=== PATIENT | female | born 1980 | race Caucasian/White ===

== ENCOUNTER 2020-06-05 21:10 | Emergency (ER) | payer BC, SELFPAY ==
[2020-06-05 21:09] VITALS: BP 166/95; PULSE 77; RESP 17; TEMP 36.6; O2SAT 100
--- NOTE | 2020-06-05 21:16 | ED.ALLEREA ---
HPI - Allergic Reaction General Chief complaint: Allergic Reaction Stated complaint: allergic reaction Source: patient and EMS Mode of arrival: EMS Limitations: no limitations History of Present Illness HPI narrative: Patient is a 39-year-old female who presents for evaluation of allergic reaction. Patient was out this evening drinking with friends, when she suddenly felt hives, over her body, started to experience some itching in her throat, tongue swelling and swelling of her eyelids. Patient states that she has a history of 10 previous severe allergic reactions requiring evaluation in emergency department. She does not have an EpiPen prescribed to her and is never seen an home based assistant. EMS was called, patient was immediately administered intramuscular epinephrine, IV Solu-Medrol and IV Benadryl. Patient had much improvement in her symptoms through transfer and remained hemodynamically stable. At the time of assessment, patient is really only reporting feeling anxious, eyelid edema, tongue edema is much improved. Patient has no history of confirmed allergies to specific foods, medications or environmental exposures. Patient has no confirmed allergic reactions to any foods, medications, environmental exposures. Related Data Allergies Allergy/AdvReac Type Severity Reaction Status Date / Time No Known Allergies Allergy Verified 06/05/20 21:13 Review of Systems Review of Systems: Narrative: CONSTITUTIONAL: Denies fever CARDIOVASCULAR: Denies chest pain RESPIRATORY: Denies cough or dyspnea. GASTROINTESTINAL: Denies abdominal pain SKIN: Denies rash MUSCULOSKELETAL: Denies back pain NEUROLOGIC: Denies headache [facility] Past Medical History Medical History (Updated 06/05/20 @ 22:24 by Betzaida Yung MD) Asthma Ectopic Surgical History Surgical History (Updated 06/05/20 @ 21:20 by Betzaida Yung MD) H/O oophorectomy Family History Family History (Updated 06/18/14 @ 07:13 by DOCTOR UNKNOWN) Mother Hypertension Grandparent Cerebrovascular accident Carcinoma of colon Family history of lung cancer Social History Social History Smoking status: Never smoker Second hand tobacco smoke exposure: No Alcohol intake: current Exam Narrative: Exam Narrative: GENERAL: Awake, alert, conversant HEAD: Normocephalic, atraumatic. EYES: PERRLA and EOMI. bilateral eyelid edema. ENT: Nares clear, no rhinorrhea or epistaxis. Mucous membranes moist. No tongue edema. No trismus. Uvula is midline. NECK: Supple. CHEST: No respiratory distress, breathing even and non labored, patient is slightly hyperventilating HEART: Regular rate, sinus rhythm ABDOMEN:Non distended, non tender EXTREMITIES: Normal range of motion. No edema. SKIN: Warm, dry, no rash. No urticaria. NEURO:No focal deficits. Alert and oriented x3 Course Vital Signs Vital signs: Vital Signs Temperature 36.6 C 06/05/20 21:09 Pulse Rate 77 06/05/20 21:09 Respiratory Rate 17 06/05/20 21:09 Blood Pressure 166/95 H 06/05/20 21:09 Pulse Oximetry 100 06/05/20 21:09 Temperature 36.6 C 06/05/20 21:09 Pulse Rate 79 06/06/20 00:21 Respiratory Rate 16 06/06/20 00:21 Blood Pressure 123/62 06/06/20 00:21 Pulse Oximetry 98 06/06/20 00:21 MDM - Allergic Reaction MDM Narrative Medical decision making narrative: Patient presented for evaluation of allergic reaction. Patient is having some mild shortness of breath as well as rash which is concerning for 2 system involvement which would be consistent with anaphylaxis. No hypotension or hypoxemia. Patient had been given IV epinephrine, steroids, Benadryl by EMS and did have much improvement in her symptoms, but did require repeat intramuscular epinephrine injection due to recurrent lid edema. Patient was given a DuoNeb treatment. Additional Benadryl as well. Laboratory results notable for hypokalemia
--- NOTE | 2020-06-05 21:19 | PC.NURSE ---
pt presents to ER via EMS with c/o anaphlyatic reaction. unknown what pt is allergic to. pt states she was on her way to dinner when she noticed facial swelling, hives, tongue swelling, and difficulty breathing. pt was given solu-medrol, benadryl, and epi by EMS. upon arrival, EMS reports pt's facial swelling has decreased and hives have diminished. pt SpO2 100% on RA.
[2020-06-05 21:25] VITALS: PULSE 96; RESP 16
[2020-06-05] MEDS: diphenhydrAMINE HCl INJ 50 MG/ML VIAL 25 MG IV PUSH (21:25)
[2020-06-05] MEDS: SODIUM CHLORIDE 0.9% IV 1,000 ML 999 ML IV CONT (21:25)
[2020-06-05] MEDS: ALBUTEROL SULFATE NEB 2.5 MG/0.5 ML INH 5 MG INHALATION (21:29)
[2020-06-05] MEDS: IPRATROPIUM BR 0.02% INH SOLN 0.5 MG/2.5 ML VIAL INHALATION (21:29)
[2020-06-05 21:31] LABS: Basophils Absolute Auto 0.1 K/mm3 (0.0-0.1); Basophils Percent Auto 0.7 % (0.2-1.2); Eosinophils Absolute Auto 0.4 K/mm3 (0-0.3); Eosinophils Percent Auto 2.6 % (0-4.4); Hemoglobin 12.6 g/dL (12.0-15.0); Immature Granulocyte Absolute 0.05 K/mm3 (0.00-0.031); Immature Granulocyte Percent A 0.3 % (0-0.5); Lymphocytes Absolute Auto 6.75 K/mm3 (0.9-3.2); Lymphocytes Percent Auto 42.1 % (18.3-44.2); Mean Corpuscular HGB Conc 33.2 g/dl (32-36); Mean Corpuscular Hemoglobin 28.1 pg (26-34); Mean Corpuscular Volume 84.8 fl (80-100); Mean Platelet Volume 9.1 fl (7.4-10.4); Monocytes Absolute Auto 1.1 K/mm3 (0.1-0.6); Monocytes Percent Auto 7.1 % (2.6-8.5); Neutrophils Absolute Auto 7.6 K/mm3 (1.3-6.7); Neutrophils Percent Auto 47.2 % (45.5-73.1); Platelet Count Result 310 k/mm3 (150-375); Red Blood Count 4.48 M/mm3 (4.2-5.4); Red Cell Distribution Width 13.2 % (11.5-14.5); White Blood Count 16.1 K/mm3 (4.5-10.0)
[2020-06-05 21:33] VITALS: PULSE 87; RESP 16
--- NOTE | 2020-06-05 21:38 | PC.NURSE ---
pt ambulatory to restroom at this time without difficulty. pt's remains at bedside.
[2020-06-05] MEDS: EPINEPHrine HCL INJ 1 MG/ML AMPUL 0.3 MG IM (21:42)
[2020-06-05 21:47] LABS: Atypical Lymphocytes Present; Platelet Estimate Adequate (Adequate)
[2020-06-05 21:58] VITALS: BP 152/69; PULSE 74; RESP 19; O2SAT 100
[2020-06-05 22:16] LABS: Anion Gap 17 mmol/L (8-16); Blood Urea Nitrogen 10 mg/dL (7-17); Carbon Dioxide 18 mmol/L (22-30); Chloride 99 mmol/L (98-107); Estimated CRCL calculation 93 ml/min; Estimated Glomerular Filt Rate > 60; Glucose 123 mg/dL (65-105); Potassium 2.3 mmol/L (3.4-5.0); Sodium 134 mmol/L (137-145)
[2020-06-05] MEDS: POTASSIUM CHLORIDE 20 MEQ PACKET (FOR LIQUID) 40 MEQ PO (22:47)
[2020-06-05] MEDS: SODIUM CHLORIDE 0.9% IV 1,000 ML 100 ML (23:44)
[2020-06-06 00:21] VITALS: BP 123/62; PULSE 79; RESP 16; O2SAT 98
[2020-06-06 00:46] LABS: Anion Gap 14 mmol/L (8-16); Blood Urea Nitrogen 8 mg/dL (7-17); Carbon Dioxide 18 mmol/L (22-30); Chloride 105 mmol/L (98-107); Estimated CRCL calculation 93 ml/min; Estimated Glomerular Filt Rate > 60; Glucose 135 mg/dL (65-105); Potassium 3.7 mmol/L (3.4-5.0); Sodium 137 mmol/L (137-145)
[2020-06-06 01:15] VITALS: BP 131/75; PULSE 75; RESP 16; O2SAT 99
== END 2020-06-06 01:16 | disposition home or self-care (01) ==
PROVIDERS: Emergency Provider Emergency Medicine
DX: T78.2XXA Anaphylactic shock, unspecified, initial encounter (principal); E87.6 Hypokalemia; J45.909 Unspecified asthma, uncomplicated
CPT/HCPCS: 36415; 80048; 85025; 94640; 96361; 96365; 96366; 96372; 96375; 99284; A9270; J0171; J1200; J3480; J7030

== ENCOUNTER 2021-03-04 14:46 | Outpatient (CLI) | payer BC, SELFPAY ==
--- NOTE | ~2021-03-04 | MM_ITS ---
EXAMINATION: MM screening [facility] BI w mila HISTORY: Screening mammogram TECHNIQUE: Craniocaudal and mediolateral oblique 3-D tomosynthesis images were obtained and synthetic 2-D images were generated. CAD analysis was submitted and interpreted. COMPARISON: 07/31/2013, 12/21/2011 BREAST PARENCHYMAL COMPOSITION: The breasts are extremely dense, which lowers the sensitivity of mamm ography. FINDINGS: There is no evidence of suspicious mass, calcification, or architectural distortion to sugg est malignancy in either breast. There has been no suspicious interval change. IMPRESSION: 1. No mammographic evidence of malignancy. 2. Recommend routine screening mammography in one year. BI-RADS Category 1: Negative Reviewed, dictated and finalized at location A.
== END 2021-03-04 14:47 | disposition home or self-care (01) ==
LOC: ANHIMG 14:48
PROVIDERS: PCP Family Medicine; Visit Provider Obstetrics & Gynecology
DX: Z12.31 Encounter for screening mammogram for malignant neoplasm of breast (principal)
CPT/HCPCS: 77063; 77067

== ENCOUNTER 2022-09-21 16:07 | Outpatient (CLI) | payer BC, SELFPAY ==
--- NOTE | ~2022-09-21 | MM_ITS ---
EXAMINATION: MM screening [facility] BI w mila HISTORY: Screening mammogram TECHNIQUE: Craniocaudal and mediolateral oblique 3-D tomosynthesis images were obtained and synthetic 2-D images were generated. CAD analysis was submitted and interpreted. COMPARISON: 03/04/2021, 07/31/2013, 12/21/2011 BREAST PARENCHYMAL COMPOSITION: The breasts are extremely dense, which lowers the sensitivity of mamm ography. FINDINGS: No suspicious mass, calcification, or architectural distortion are identified in either tyler ast to suggest malignancy. There has been no suspicious interval change. IMPRESSION: 1. No mammographic evidence of malignancy. 2. Recommend routine screening mammography in one year. BI-RADS Category 1: Negative Reviewed, dictated and finalized at location A. 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
== END 2022-09-21 16:08 | disposition home or self-care (01) ==
LOC: ANHIMG 16:08
PROVIDERS: PCP Family Medicine; Visit Provider Obstetrics & Gynecology
DX: Z12.31 Encounter for screening mammogram for malignant neoplasm of breast (principal)
CPT/HCPCS: 77063; 77067

== ENCOUNTER 2023-01-07 17:10 | Emergency (ER) | payer BC, SELFPAY ==
[2023-01-07 17:18] VITALS: BP 136/83; PULSE 73; RESP 16; TEMP 36.6; O2SAT 100
--- NOTE | 2023-01-07 17:26 | ED.EYEPROB ---
HPI - Eye Problem General Chief complaint: Eye Problems Stated complaint: rt eye swelling/pain Time Seen by Provider: 01/07/23 17:26 Source: patient Mode of arrival: ambulatory Limitations: no limitations History of Present Illness HPI Narrative: 42 y/o female presented for c/o right eye irritation since yesterday. States it started with feeling a little pain to the outer corner of the eye, then resulted in a migraine which has resolved. Today she has had lower lid redness and swelling with tenderness to the lower lid and clear tearing. Denies stye formation. Pt used warm compresses and saline drops. Also used left over Polytrim drops today, which caused burning. Denies photophobia, vision changes, headache, n/v/d/f/c today. chief complaint: eye pain Related Data Home Medications Medication Instructions Recorded Confirmed cetirizine 10 mg capsule (Zyrtec) 10 mg PO DAILY 08/12/20 01/07/23 Allergies Allergy/AdvReac Type Severity Reaction Status Date / Time No Known Allergies Allergy Verified 01/07/23 17:36 Review of Systems Review of Systems: CONSTITUTIONAL: Denies body aches, fever, chills EYES:Endorses swelling, redness and pain to right eye ENT: Denies rhinorrhea, congestion, sore throat, or otalgia. CARDIOVASCULAR: Denies chest pain, palpitations RESPIRATORY: Denies cough or dyspnea. GASTROINTESTINAL: Denies abdominal pain, nausea, vomiting, or diarrhea. SKIN: Denies rash, itching, or wounds. MUSCULOSKELETAL: Denies back pain, joint pain, or myalgia. NEUROLOGIC: Denies headache, numbness, tingling, or weakness. All systems reviewed & are unremarkable except as noted in HPI and below PMFSH Past Medical History Medical History Asthma Ectopic Ectopic , tubal Surgical History Surgical History History of bilateral salpingectomy History of section History of tonsillectomy Family History Family History Mother Hypertension Grandparent Cerebrovascular accident Carcinoma of colon Family history of lung cancer Social History Social History (Reviewed 01/07/23 @ 17:34 by ANDREA Pittman Smoking status: Never smoker Second hand tobacco smoke exposure: No Alcohol intake: current Comments At time of signature, I have reviewed and agree with nursing past medical, surgical, social and family history unless otherwise noted. Please see nursing chart for further information. There is no relevant family history pertinent to the presenting complaint Exam Narrative: GENERAL: Well-appearing HEAD: Normocephalic, atraumatic. EYES: right conjunctival injection, lower eye lid mild swelling with redness; no apparent cellulitis, no purulent drainage, no stye noted, no FB; PERRLA, EOMI. ENT: Mucous membranes pink and moist. No rhinorrhea. CHEST: Clear to auscultation. HEART: Regular rate and rhythm. ABDOMEN: Soft, nontender, nondistended SKIN: Warm, dry, no rash. Normal skin turgor. NEURO: No focal deficits. Alert and oriented x3 PSYCH: Normal affect. Course Course Emergency Course: Patient is aware of diagnosis, understands and agrees to treatment plan. Anticipatory guidance given. Patient agrees to follow-up as directed and is aware of reasons to seek care at the emergency department. Portions of this record may have been created with voice recognition software Level of Care: Express Care Visit Vital Signs Vital signs: Vital Signs Temperature 98 F 01/07/23 17:18 Pulse Rate 73 01/07/23 17:18 Respiratory Rate 16 01/07/23 17:18 Blood Pressure 136/83 01/07/23 17:18 Pulse Oximetry 100 01/07/23 17:18 Temperature 98 F 01/07/23 17:18 Pulse Rate 73 01/07/23 17:18 Respiratory Rate 16 01/07/23 17:18 Blood Pressure 136/83 01/07/23 17:18 Pulse O
== END 2023-01-07 17:57 | disposition home or self-care (01) ==
PROVIDERS: Emergency Provider Nurse Practitioner Family; PCP Family Medicine
DX: H10.9 Unspecified conjunctivitis (principal)
CPT/HCPCS: 99213; A9270; G0463

== ENCOUNTER 2023-12-10 08:29 | Outpatient (CLI) | payer BC, SELFPAY ==
--- NOTE | ~2023-12-10 | MMUS_ITS ---
EXAMINATION: MM diagnostic [facility] BI w mila, US breast BI complete HISTORY: Palpable breast lump. TECHNIQUE: Additional 3-D tomosynthesis images of the breasts were performed and synthetic 2-D images were generated. CAD analysis was submitted and interpreted. High resolution bilateral complete breas t ultrasound was performed. COMPARISON: Comparison to multiple prior studies sequentially, with oldest reviewed study dated 03/04. BREAST PARENCHYMAL COMPOSITION: Dense: The breasts are heterogeneously dense, which may obscure small masses FINDINGS: MAMMOGRAPHIC FINDINGS: There are no suspicious masses, calcifications or architectural distortion in either breast to sugges t malignancy. ULTRASOUND: Complete bilateral US of all 4 quadrants of the breasts and retroareolar region was reviewed. There a re small cysts of the right breast at 4:00, 4 cm from the nipple measuring 3 mm and 7:00, 6 cm from t he nipple measuring 4 mm. No suspicious masses are identified in either breast to suggest malignancy. IMPRESSION: 1. No evidence for malignancy in either breast. 2. Routine yearly screening mammogram and regular clinical breast examination are recommended. BI-RADS Category 2: Benign finding(s). Reviewed, dictated and finalized at location A. 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 No evidence for malignancy in either breast. 2. Routine yearly screening mammogram and regular clinical breast examination a re recommended. BI-RADS Category 2: Benign finding(s).
== END 2023-12-10 08:30 | disposition home or self-care (01) ==
LOC: CHSIMG 08:31
PROVIDERS: PCP Family Medicine; Visit Provider Registered Nurse
DX: N63.13 Unspecified lump in the right breast, lower outer quadrant (principal)
CPT/HCPCS: 76641; 77062; 77066; G0279

== ENCOUNTER 2024-12-02 19:35 | Emergency (ER) | payer BC, SELFPAY ==
--- NOTE | 2024-12-02 19:46 | ED.ABDPAIN ---
HPI - Abdominal Pain General Chief Complaint: Abdominal Pain Stated Complaint: Abdominal Pain Source: patient and RN notes reviewed Mode of arrival: ambulatory Limitations: no limitations History of Present Illness HPI narrative: Patient is a 44-year-old female who presents to [facility] with complaints of lower abdominal pain. She states that the abdominal pain started midday. The pain has now migrated to the right lower quadrant. It is constant and sharp. She states that it will intermittently radiate up into her right shoulder. She denies any urinary symptoms. Denies nausea but reports decreased appetite. She unsure of known fevers but reports chills. Denies any prior GI surgeries. Denies history of kidney stones. Related Data Home Medications ?Medication ?Instructions ?Recorded ?Confirmed ?Last Taken ?Type cetirizine 10 mg capsule (Zyrtec) 10 mg PO DAILY 08/12/20 08/20/24 Unknown History Allergies Allergy/AdvReac Type Severity Reaction Status Date / Time No Known Allergies Allergy Verified 08/19/24 11:38 Review of Systems Review of Systems: CONSTITUTIONAL: Denies fever, but reports chills. EYES: Denies visual changes, redness, or discharge. ENT: Denies otalgia and sore throat CARDIOVASCULAR: Denies chest pain, palpitations, or edema. RESPIRATORY: Denies cough or dyspnea. GASTROINTESTINAL: Reports abdominal pain but denies nausea, vomiting, or diarrhea. GENITOURINARY: Denies dysuria or hematuria. SKIN: Denies rash or itching. MUSCULOSKELETAL: Denies back pain, joint pain, or myalgia. NEUROLOGIC: Denies headache, numbness, or weakness. Pertinent positives per HPI. [facility] Past Medical History Medical History Ectopic , tubal Ectopic Asthma Surgical History Surgical History History of section History of bilateral salpingectomy History of tonsillectomy Family History Family History Mother Hypertension Grandparent Cerebrovascular accident Carcinoma of colon Family history of lung cancer Social History Social History Smoking status: Never smoker Second hand tobacco smoke exposure: No Alcohol intake: current Substance use: never Substance use type: does not use Lack of Transportation: No Lack of Food: Never True Current Housing: I Have Housing Concerned About Future Housing: No Difficulty Paying Gas/Electric Bills: No Difficulty Paying for Meds: No Currently Unemployed: No Education: Master's Degree or Higher Difficulty w/ Childcare or Family Care: No Comments At the time of my signature, I reviewed and agree with the nursing past medical, surgical, social, and family history. There is no relevant family history pertinent to the patient complaint. Exam Narrative: GENERAL: This is a well-nourished, well-developed patient, in no apparent distress. HEAD: normocephalic, atraumatic. EYES: Sclera clear/white. Vision is grossly intact. EARS: External ears normal. Hearing grossly intact. NOSE: External nose normal with no obvious nasal discharge, nares without redness, no rhinorrhea. THROAT: Mucous membranes moist, posterior pharynx clear. NECK: Neck supple, non-tender without lymphadenopathy, masses or thyromegaly. CARDIOVASCULAR: Regular rate and rhythm without murmurs, gallops, or rubs. RESPIRATORY: Clear to auscultation. Breath sounds equal bilaterally. No wheezes, rales, or rhonchi. GASTROINTESTINAL: Abdomen tender in the right lower quadrant. Bowel sounds are active. SKIN: warm, intact with no suspicious lesions or rash, good texture and turgor. NEURO: awake, alert, and oriented to person, place and time. There were no obvious focal neurologic abnormalities. Course Course Level of Care: Express Care Visit Vital Signs Vital signs: Vital Signs Temperature 98 F 12/02/24 19:48 Pulse Rate 84 12/02/24 19:48 Respiratory Rate 16 12/02/24 19:48 Blood Pressure 145/87 H 12/02/24 19:48 Pulse Oximetry 98 12/02/24 19:48 Temperature 98 F 12/02/24 19:48 Pulse Rate 84 12/02/24 19:48 Respiratory Rate 16 12/02/24 19:48 Blood Pressure 145/87 H 12/02/24 19:48 Pulse Oximetry 98 12/02/24 19:48 Reviewed Transfer Transfered to: [facility] Transportation: Other (private vehicle) Transfer rationale: appropriate testing, evaluation, and treatment for right lower quadrant abdominal pain Accepting physician: Dr. Santiago MDM - Abdominal Pain MDM Narrative Medical decision making narrative: Patient transferred to [facility] for testing, evaluation, and treatment of her right lower quadrant abdominal pain. Report was given to SKYLA Bhatt. Accepting provider is Dr. Santiago. Patient will be transported in via private vehicle. Differential Diagnosis Differential diagnosis: Likely abdominal pain, acute appendicitis, calculus of kidney, diverticulitis and gastroenteritis Critical Care Time Critical Care Time Critical Care Time: No Discharge Plan Discharge Clinical Impression: Right lower quadrant abdominal pain Patient Disposition: Acute Care Hospital Condition: Stable Additional Instructions: Go directly to [facility]. Patient Language: Scottish Prescriptions: No Action Zyrtec 10 mg capsule 10 mg PO DAILY Slynd 4 mg (28) tablet 4 mg PO DAILY Qty: 84 3RF paroxetine HCl [Paxil] 20 mg tablet 20 mg PO DAILY Qty: 90 3RF Follow-up/Referrals: Hipolito,Pascual Rizzo MD [Primary Care Provider] - Time of Disposition: 19:57
[2024-12-02 19:48] VITALS: BP 145/87; PULSE 84; RESP 16; TEMP 36.6; O2SAT 98
== END 2024-12-02 19:50 | disposition short-term general hospital (02) ==
PROVIDERS: Emergency Provider Nurse Practitioner; PCP Family Medicine
DX: R10.31 Right lower quadrant pain (principal)
CPT/HCPCS: 99212; G0463

== ENCOUNTER 2025-08-24 14:31 | Outpatient (CLI) | payer BC, SELFPAY ==
--- NOTE | ~2025-08-24 | MM_ITS ---
EXAMINATION: MM screening [facility] BI w mila HISTORY: Screening TECHNIQUE: Craniocaudal and mediolateral oblique 3-D tomosynthesis images were obtained and synthetic 2-D images were generated. CAD analysis was submitted and interpreted. COMPARISON: Comparison to multiple prior studies sequentially, with oldest reviewed study dated , 12/21/2011 BREAST PARENCHYMAL COMPOSITION: The breasts are heterogeneously dense, which may obscure small masses. FINDINGS: There is no evidence of suspicious mass, calcification, or architectural distortion to suggest malignancy in either breast. IMPRESSION: 1. No mammographic evidence of malignancy. 2. Recommend routine screening mammography in one year. BI-RADS Category 1: Negative Reviewed, dictated and finalized at location B. 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
== END 2025-08-24 14:32 | disposition home or self-care (01) ==
LOC: CHSIMG 14:31
PROVIDERS: PCP Nurse Practitioner; Visit Provider Obstetrics & Gynecology
DX: Z12.31 Encounter for screening mammogram for malignant neoplasm of breast (principal)
CPT/HCPCS: 77063; 77067